=== PATIENT | female | born 1950 | race Caucasian/White ===

== ENCOUNTER 2018-04-14 11:25 | Observation (INO) | payer MEDICARE, BC ==
[2018-04-14 12:02] LABS: #Eosinphils 0.4 thou/uL (0.0-0.7); #Monocytes 0.4 thou/uL (0.11-0.59); #Neutrophils 7.2 thou/uL (1.40-6.50); %Basophils 0.1 % (0.0-1.0); %Lymphocytes 11.3 % (21.0-51.0); %Neutrophils 80.5 % (42.0-75.0); Hemoglobin 14.9 g/dL (12.0-16.0); Mean Corpuscular HGB CONC 33.1 g/dL (32.0-36.0); Mean Corpuscular Hemoglobin 32.1 pg (27.0-31.0); Mean Corpuscular Volume 96.8 fL (78.0-98.0); Mean Platelet Volume 6.9 fL (7.4-10.4); Platelet Count 185 thou/uL (130-400); Red Blood Cell (RBC) Count 4.63 mill/uL (4.20-5.40)
[2018-04-14 12:28] LABS: ALT (SGPT) 12 U/L (8-55); AST (SGOT) 23 U/L (5-34); Albumin 4.2 g/dL (3.4-4.8); Alkaline Phosphatase 105 U/L (40-150); Anion Gap 15 mmol/L (10-20); BUN (Urea Nitrogen) 17 mg/dL (9.8-20.1); Bilirubin, Total 0.6 mg/dL (0.2-1.2); CK (CPK) 67 U/L (29-168); Calc. Creatinine Clearance 0 mL/min (70-130); Calcium 9.5 mg/dL (7.8-10.44); Carbon Dioxide 20 mmol/L (23-31); Chloride 107 mmol/L (98-107); Estimated GFR-MDRD 56; Globulin 3.2 g/dL (2.4-3.5); Glucose 143 mg/dL (80-115); Lipase 28 U/L (8-78); Potassium 4.3 mmol/L (3.5-5.1); Protein, Total 7.4 g/dL (6.0-8.3); Sodium 138 mmol/L (136-145)
[2018-04-14 12:29] LABS: CKMB 1.3 ng/mL (0-6.6); Troponin I Less than 0.010 ng/mL (< 0.028)
[2018-04-14] MEDS ORDERED: Nitroglycerin 2% Ointment 1 INCH/1 GM Packet ONE (12:39)
--- NOTE | 2018-04-14 12:48 | RAD ---
SINGLE VIEW CHEST: Date: 04/14/18 COMPARISON: None. HISTORY: Chest pain. FINDINGS: Single view of the chest shows normal sized cardiomediastinal silhouette. There is a left subclavian pacemaker with its leads in the right atrium and ventricle. There is no evidence of consolidation, ma ss, or pleural effusion. Multiple surgical clips are seen in the upper abdomen. IMPRESSION: No evidence of acute cardiopulmonary disease. POS: [facility]
[2018-04-14] MEDS ORDERED: Ondansetron HCl/PF 4 MG/2 ML Vial IVP PRN (15:02)
[2018-04-14] MEDS ORDERED: Acetaminophen 325 MG TAB PO PRN (15:02)
[2018-04-14] MEDS ORDERED: Loperamide HCl 2 MG CAP PO PRN (15:02)
[2018-04-14] MEDS ORDERED: Milk Of Magnesia 30 ML UDCUP PO PRN (15:02)
[2018-04-14] MEDS ORDERED: Chloraseptic Spray 180 ml Bottle PO PRN (15:02)
[2018-04-14] MEDS ORDERED: Nitroglycerin 0.4 MG TAB (25 Tab Bottle) SL PRN (15:02)
[2018-04-14] MEDS ORDERED: Mag-Al 1200 mg/1200 mg/30 ML UDCUP PO PRN (15:02)
[2018-04-14] MEDS ORDERED: Zolpidem Tartrate 5 MG TAB PO PRN (15:02)
[2018-04-14] MEDS ORDERED: Diabetic Tussin 200 MG/10 ML UDCUP PO PRN (15:02)
[2018-04-14] MEDS ORDERED: hydrALAZINE 20 MG/ML VIAL SLOW IVP PRN (15:02)
[2018-04-14] MEDS ORDERED: HYDROcodone/Acetaminophen 5/325 mg Tablet PO PRN ×2 (15:02→15:36)
[2018-04-14] MEDS ORDERED: Sodium Chloride 0.65% Nasal 44 ML BOT EA NARE PRN (15:02)
[2018-04-14] MEDS ORDERED: Artificial Tears 18 DROP/0.9 ML EA EYE PRN (15:02)
[2018-04-14] MEDS ORDERED: Ondansetron ODT 4 MG TAB PO PRN (15:02)
[2018-04-14] MEDS ORDERED: Loratadine 10 MG TAB PO PRN (15:02)
[2018-04-14] MEDS ORDERED: Eucerin (Mineral Oil/Petrolatum,White) 30 gm Jar TOP PRN (15:02)
[2018-04-14] MEDS ORDERED: Senokot 8.6 MG TAB PO PRN (15:02)
--- NOTE | 2018-04-14 15:45 | HP ---
PRIMARY CARE PHYSICIAN: Dr. Adonis Soares. PRIMARY LOOP MACHINE OPERATOR: Dr. Linda. REASON FOR ADMISSION: Chest pain. HISTORY OF PRESENT ILLNESS: A 68-year-old female who has underlying history of nonischemic cardiomyopathy with AICD in place who presented to emergency room with complaint of chest pain. Patient reports that chest pain started around 10 :00 at home, it was substernal, radiating to back, associated with nausea, diaphoresis, and shortness of breath. She denies any vomiting. She was feeling dizziness. She denies any syncopal episode. She denies any relation of chest discomfort with food, respiration or activity. Before all this started , patient was feeling itching sensation in both hands and feet and subsequently she went to shower where all the symptoms started. The patient requested her to call paramedics. When paramedics came to her house, at that time, the pain was already started subsiding, but she was given nitroglycerin and she was given second nitroglycerin. After that she was almost completely pain free. Patient reports that about 2 weeks ago, she had similar type of discomfort at home, at that time she called her AICD pacemaker company and they looked at her rhythm and everything was fine. She did not go to doctor's office at that time. Patient denies any lower extremity edema or calf tenderness. She denies any fever or chills. She denies any orthopnea, PND or leg swelling. Today, her pain completely subsided within 45 minutes. In the Emergency Room, patient was not hypertensive. She was almost completely asymptomatic. REVIEW OF SYSTEMS: The following complete review of systems was negative, unless otherwise mentioned in the HPI or below: Constitutional: Weight loss or gain, ability to conduct usual activities. Skin: Rash, itching. Eyes: Double vision, pain. ENT/Mouth: Nose bleeding, neck stiffness, pain, tenderness. Cardiovascular: Palpitations, dyspnea on exertion, orthopnea. Respiratory: Shortness of breath, wheezing, cough, hemoptysis, fever or night sweats. Gastrointestinal: Poor appetite, abdominal pain, heartburn, nausea, vomiting, constipation, or diarrhea. Genitourinary: Urgency, frequency, dysuria, nocturia. Musculoskeletal: Pain, swelling. Neurologic/Psychiatric: Anxiety, depression. Allergy/Immunologic: Skin rash, bleeding tendency. Please see my HPI for pertinent positive and negative. All other review of systems reviewed and negative except as mentioned in the HPI. ALLERGIES: CODEINE, SULFATE and NUBAIN. CURRENT HOME MEDICATIONS: Coreg 6.25 mg twice daily, Zocor 40 mg p.o. at bedtime, Cymbalta 30 mg p.o. at bedtime, celecoxib 200 mg p.o. twice daily, fluoxetine 20 mg p.o. daily, Voltaren topical application as needed, losartan 100 mg p.o. daily, Aldactone 25 mg p.o. daily, gabapentin 300 mg p.o. twice daily, morphine 15 mg ER twice daily, aspirin 81 mg p.o. daily, L-carnitine 500 mg p.o. daily, coenzyme Q10 100 mg p.o. daily. PAST MEDICAL HISTORY: Nonischemic cardiomyopathy with AICD. As per patient, initial EF was on diagnosis at 19%-20%. Subsequently, with AICD and with pacemaker, her EF improved to more than 40% based on last echocardiography which was done several years ago, degenerative back disease, hypertension, dyslipidemia. PAST SURGICAL HISTORY: AICD/pacemaker placement, partial nephrectomy, mastectomy of the right breast, tonsillectomy. PAST PSYCHIATRIC HISTORY: Anxiety and depression. SOCIAL HISTORY: Patient is . Her is present at bedside. No history of tobacco, alcohol or illicit drug abuse. EMERGENCY ROOM COURSE: Patient is given nitropatch. FAMILY HISTORY: No strong family history of CAD, CVA or cancer. PHYSICAL EXAMINATION: VITAL SIGNS: On arrival, blood pressure 140/85, pulse is 78, respiratory rate 18, temperature 98.2, saturation 96% on room air, weight 83.4 kilograms. GENERAL: The patient is currently alert, awake, no obvious acute distress, asymptomatic. HEENT: Normocephalic, atraumatic. Eyes: Pupils round, reactive to light. Extraocular muscle intact. ENT: Oropharynx within normal limits. Moist mucous membranes. No oral lesion , no pharyngeal erythema, no exudate. NECK: Supple, no JVD, no thyromegaly, no carotid bruit, no jugular venous distention. LUNGS: Clear to auscultation without any rhonchi or rales. CARDIAC: S1, S2 regular. No murmur, no gallop, no rub. ABDOMEN: Soft, bowel sounds present, nontender, nondistended. No organomegaly , no mass, no suprapubic tenderness. BACK: Unremarkable, no CVA tenderness. EXTREMITIES: Upper extremity passives movement of all joints are normal. Lower extremities: No edema. Good distal pulsation, no calf tenderness. SKIN: No skin rash. HEMATOLOGICAL SYSTEM: No lymphadenopathy. PSYCHIATRIC: Normal affect. NEUROLOGIC: The patient is alert, oriented x3. Cranial nerves II-XII intact. Motor and sensation within normal limits. No focal neurological deficit noted. IMAGING DATA AND SIGNIFICANT LABORATORY DATA: 1. EKG showing normal sinus rhythm within normal limits. 2. Chest x-ray based on my review, no acute cardiopulmonary process. 3. Cardiac enzymes: CK-MB 1.3, troponin I less than 0.010. 4. Lipase 28. 5. CK total 67. 6. BMP: Sodium 138, potassium 4.3, chloride 107, carbon dioxide 20, anion gap 15, BUN 17, creatinine 0.99, glucose 143, calcium 9.5. 7. LFT: Protein 7.4, albumin 4.2, AST 23, ALT 12, alkaline phosphatase 105. 8. CBC: WBC 9.0, hemoglobin 14.9, platelet 185. ASSESSMENT AND PLAN/IMPRESSION: 1. Acute chest pain. Patient's chest pain description is atypical, does not suspect any aortic dissection or aortic plaque rupture given the patient is currently completely asymptomatic and she was not hypertensive on admission and her blood pressure is normal in both upper extremities, patient does not have any risk factor for thromboembolic disorder and the patient is currently on room air, saturating normal, without any tachycardia. So thromboembolic disorder is also extremely unlikely, does not suspect any gastroesophageal reflux disease, but needs to be ruled out. Patient also has several risk factors for coronary artery disease and that is why we need to rule out coronary artery disease. At this point, our main differential is angina that has improved with nitroglycerin. At this point, cardiogram is normal. Cardiac enzymes are negative, but the patient will need serial cardiac enzymes to rule out acute coronary syndrome. We will check lipid profile for risk stratification. I spoke with the patient that if cardiac enzymes continue to be negative, then she agreed to go for pharmacological stress test tomorrow for diagnostic reason. If cardiac enzymes catheterization abnormal, then patient also agreed to consult Cardiology here in our hospital to her facing baster jumpbasting at [facility]. Depending upon stress test result versus cardiac enzymes result, we will decide next level of care. We will monitor on telemetry floor. 2. Nonischemic cardiomyopathy with chronic systolic heart failure. The patient is currently euvolemic. We will continue Coreg 6.25 mg p.o. b.i.d., Aldactone 25 mg p.o. daily, losartan 100 mg p.o. daily. 3. Dyslipidemia. Check lipid profile tomorrow and continue Zocor 40 mg p.o. at bedtime. 4. Anxiety and depression. Continue Cymbalta 30 mg p.o. daily, Prozac 20 mg p.o. daily. 5. Chronic low back pain. Continue gabapentin 300 mg twice daily, morphine sulfate 15 mg twice daily. 6. Deep venous thrombosis prophylaxis not needed because we are expecting discharge in 24 hours. 7. Gastrointestinal prophylaxis, Pepcid 20 mg p.o. b.i.d. 8. Code status: The patient is FULL CODE. Patient's is surrogate decision maker. Disposition plan based on stress test result, likely within 24 hours. Plan of care is discussed with the patient and family member at bedside. RODRIGO
[2018-04-14 15:50] LABS: Troponin I 0.043 ng/mL (< 0.028)
[2018-04-14 17:10] VITALS: BMI 32.5
[2018-04-14] MEDS: Carvedilol 6.25 MG TAB PO SCH (17:55)
[2018-04-14 18:40] LABS: Troponin I Less than 0.010 ng/mL (< 0.028)
[2018-04-14] MEDS ORDERED: Atorvastatin Calcium 20 MG TAB PO SCH (21:00)
[2018-04-14] MEDS: Gabapentin 300 MG CAP PO SCH (21:34)
[2018-04-14] MEDS: Famotidine 20 MG TAB PO SCH (21:34)
[2018-04-14] MEDS: Morphine ER 15 MG TAB PO SCH (21:34)
[2018-04-14] MEDS: Nitroglycerin 2% Ointment 1 INCH/1 GM Packet TOP SCH (21:35)
[2018-04-15 06:15] LABS: Cardiac Risk 3.3 (Less than 4.5)
[2018-04-15] MEDS: Nitroglycerin 2% Ointment 1 INCH/1 GM Packet TOP SCH ×2 (07:57→14:32)
[2018-04-15] MEDS ORDERED: Spironolactone 25 MG TAB PO SCH (08:00)
[2018-04-15] MEDS ORDERED: ADENOSINE 60 MG/20 ML VIAL ONE (08:18)
[2018-04-15] MEDS: Gabapentin 300 MG CAP PO SCH (08:39)
[2018-04-15] MEDS: Famotidine 20 MG TAB PO SCH (08:39)
[2018-04-15] MEDS: Morphine ER 15 MG TAB PO SCH (08:45)
[2018-04-15] MEDS: Carvedilol 6.25 MG TAB PO SCH (08:45)
[2018-04-15] MEDS ORDERED: Losartan 25 MG TAB PO SCH (09:00)
[2018-04-15] MEDS ORDERED: Ubidecarenone 50 MG CAP PO SCH (09:00)
[2018-04-15] MEDS ORDERED: DULoxetine 30 MG CAP PO SCH (09:00)
[2018-04-15] MEDS ORDERED: Aspirin 325 MG TAB PO SCH (09:00)
[2018-04-15] MEDS ORDERED: FLUoxetine HCl 20 MG CAP PO SCH (09:00)
--- NOTE | 2018-04-15 11:23 | PDOC.PN ---
- Subjective Encounter Start Date: 04/15/18 Encounter Start Time: 07:10 -: old records requested/rev Patient seen and examined. No new complaints. No overnight events - Objective Resuscitation Status: Resuscitation Status FULL:Full Resuscitation MAR Reviewed: Yes Vital Signs & Weight: Vital Signs (12 hours) Temp Pulse Resp BP BP Pulse Ox 04/15/18 07:50 98.6 F 80 18 118/59 L 97 04/15/18 05:03 80 18 113/56 L 100 04/14/18 23:26 98.4 F 70 21 H 128/60 98 Weight Weight 184 lb I&O: 04/14/18 04/15/18 04/16/18 06:59 06:59 06:59 Intake Total 1000 Balance 1000 Result Diagrams: 04/14/18 11:43 04/14/18 11:51 EKG Reviewed by me: Yes Phys Exam - Physical Examination Constitutional: NAD HEENT: PERRLA, moist MMs, sclera anicteric Neck: no JVD, supple Respiratory: no wheezing, no rales, no rhonchi Cardiovascular: RRR, no significant murmur, no rub Gastrointestinal: soft, non-tender, no distention, positive bowel sounds Musculoskeletal: no edema, pulses present Neurological: non-focal, normal sensation, moves all 4 limbs Lymphatic: no nodes Psychiatric: normal affect, A&O x 3 Skin: no rash, normal turgor Dx/Plan (1) Chest pain Code(s): R07.9 - CHEST PAIN, UNSPECIFIED Status: Acute (2) Anxiety and depression Code(s): F41.9 - ANXIETY DISORDER, UNSPECIFIED; F32.9 - MAJOR DEPRESSIVE DISORDER, SINGLE EPISODE, UNSPECIFIED Status: Chronic (3) Chronic systolic heart failure, ACC/AHA stage C Code(s): I50.22 - CHRONIC SYSTOLIC (CONGESTIVE) HEART FAILURE Status: Chronic (4) Dyslipidemia Code(s): E78.5 - HYPERLIPIDEMIA, UNSPECIFIED Status: Chronic (5) Hypertension Code(s): I10 - ESSENTIAL (PRIMARY) HYPERTENSION Status: Chronic (6) Obesity (BMI 30.0-34.9) Code(s): E66.9 - OBESITY, UNSPECIFIED Status: Chronic - Plan cont current plan of care * medication reviewed as below * symptomatic treatment * today stress test * if normal will discharge to home * if abnormal, then pt to decide if she is interested in cardiac cath here or 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 Review of Systems - Review of Systems Eyes: negative: Pain, Vision Change, Conjunctivae Inflammation, Eyelid Inflammation, Redness, Other ENT: negative: Ear Pain, Ear Discharge, Nose Pain, Nose Discharge, Nose Congestion, Mouth Pain, Mouth Swelling, Throat Pain, Throat Swelling, Other Respiratory: negative: Cough, Dry, Shortness of Breath, Hemoptysis, SOB with Excertion, Pleuritic Pain, Sputum, Wheezing Cardiovascular: negative: chest pain, palpitations, orthopnea, paroxysmal nocturnal dyspnea, edema, light headedness, other Gastrointestinal: negative: Nausea, Vomiting, Abdominal Pain, Diarrhea, Constipation, Melena, Hematochezia, Other Genitourinary: negative: Dysuria, Frequency, Incontinence, Hematuria, Retention , Other Musculoskeletal: negative: Neck Pain, Shoulder Pain, Arm Pain, Back Pain, Hand Pain, Leg Pain, Foot Pain, Other - Medications/Allergies Allergies/Adverse Reactions: Allergies Allergy/AdvReac Type Severity Reaction Status Date / Time codeine Allergy Verified 04/14/18 15:26 [id number] [From Nubain] Allergy Verified 04/14/18 15:26 Medications: Current Medications Acetaminophen (Tylenol) 650 mg PO Q4H PRN PRN Reason: Headache/Fever or Pain Hydrocodone Bitart/Acetaminophen ([place] 5/325) 1 tab PO Q4H PRN PRN Reason: Moderate Pain (4-6) Al Hydroxide/Mg Hydroxide (Maalox) 30 ml PO Q6H PRN PRN Reason: Heartburn or Indigestion Artificial Tears (Tears Naturale) 0 drop EA EYE PRN PRN PRN Reason: Dry Eyes Aspirin (Aspirin) 325 mg PO DAILY [facility] Last Admin: 04/15/18 08:38 Dose: 325 mg Atorvastatin Calcium (Lipitor) 20 mg PO HS [facility] Last Admin: 04/14/18 21:34 Dose: 20 mg Carvedilol (Coreg) 6.25 mg PO BID-WM [facility] Last Admin: 04/14/18 17:55 Dose: 6.25 mg Coenzyme Q10 (Coenzyme Q10) 100 mg PO DAILY [facility] Last Admin: 04/15/18 08:41 Dose: 100 mg Duloxetine HCl (Cymbalta) 30 mg PO DAILY [facility] Last Admin: 04/15/18 08:38 Dose: 30 mg Famotidine (Pepcid) 20 mg PO BID [facility] Last Admin: 04/15/18 08:39 Dose: 20 mg Fluoxetine HCl (Prozac) 20 mg PO DAILY [facility] Last Admin: 04/15/18 08:39 Dose: 20 mg Gabapentin (Neurontin) 300 mg PO BID [facility] Last Admin: 04/15/18 08:39 Dose: 300 mg Guaifenesin (Robitussin Sf) 200 mg PO Q4H PRN PRN Reason: Cough Hydralazine HCl (Apresoline) 10 mg SLOW IVP Q4H PRN PRN Reason: Systolic BP > 180 Loperamide HCl (Imodium) 2 mg PO PRN PRN PRN Reason: Diarrhea/Loose Stools Loratadine (Claritin) 10 mg PO DAILYPRN PRN PRN Reason: Sinus Symptoms Losartan Potassium (Cozaar) 100 mg PO DAILY [facility] Last Admin: 04/15/18 08:39 Dose: 100 mg Magnesium Hydroxide (Milk Of Magnesium) 30 ml PO DAILYPRN PRN PRN Reason: Constipation Mineral Oil/White Petrolatum (Eucerin Cream) 0 gm TOP BIDPRN PRN PRN Reason: Dry Skin Morphine Sulfate (Ms Contin) 15 mg PO Q12HR [facility] Last Admin: 04/15/18 08:45 Dose: 15 mg Nitroglycerin (Nitro-Bid 2% Ointment) 0.5 inch TOP Q8HR [facility] Last Admin: 04/15/18 07:57 Dose: Not Given Nitroglycerin (Nitrostat) 0.4 mg SL Q5MIN PRN PRN Reason: Chest Pain Ondansetron HCl (Zofran Odt) 4 mg PO Q6H PRN PRN Reason: Nausea/Vomiting Ondansetron HCl (Zofran) 4 mg IVP Q6H PRN PRN Reason: Nausea/Vomiting Phenol (Chloraseptic Arco 180 Ml Bot) 0 ml PO PRN PRN PRN Reason: Sore Throat Senna (Senokot) 2 tab PO HSPRN PRN PRN Reason: Constipation Sodium Chloride (Maria Antonia Nasal Arco 0.65%) 0 ml EA NARE QIDPRN PRN PRN Reason: Nasal Congestion Spironolactone (Aldactone) 25 mg PO QAM-WM [facility] Last Admin: 04/15/18 08:38 Dose: 25 mg Zolpidem Tartrate (Ambien) 5 mg PO HSPRN PRN PRN Reason: Insomnia
--- NOTE | 2018-04-15 12:47 | DIS ---
DATE OF ADMISSION: 04/14/2018 DATE OF DISCHARGE: 04/15/2018 PRIMARY CARE PHYSICIAN: Adonis Soares M.D. DISCHARGE DISPOSITION: Home. PRIMARY DISCHARGE DIAGNOSIS: Chest pain, ruled out acute coronary syndrome. SECONDARY DISCHARGE DIAGNOSES: Obesity with BMI 32; hypertension; dyslipidemia ; chronic systolic heart failure, stage C; anxiety and depression. PRIMARY PROCEDURE/OPERATION: None. RADIOLOGICAL INVESTIGATION: Chest x-ray normal. Stress test result is pending. SIGNIFICANT LABORATORY DATA: WBC 9.0, hemoglobin 14.9, platelets 185. Sodium 138, potassium 4.3, BUN 17, creatinine 0.99. LFT normal. Cardiac enzymes negative. Only one troponin was indeterminant and LDL 90, lipase 28. DISCHARGE MEDICATIONS: Aspirin 81 mg p.o. daily, Coreg 6.25 mg p.o. b.i.d., celecoxib 200 mg p.o. b.i.d. p.r.n., vitamin D3 2000 units p.o. daily, Voltaren topical application as directed, Colace 50 mg p.o. b.i.d., Cymbalta 30 mg p.o. at bedtime, Prozac 20 mg p.o. daily, gabapentin 300 mg p.o. b.i.d., L-carnitine 500 mg p.o. b.i.d., losartan 100 mg p.o. daily, morphine ER 15 mg p.o. b.i.d., Zocor 40 mg p.o. at bedtime, Aldactone 25 mg p.o. daily, coenzyme Q10 100 mg p.o. daily. CONTRAINDICATIONS: None. CODE STATUS: FULL CODE. INPATIENT CONSULTANTS: None. ALLERGIES: CODEINE and NALBUPHINE. DISCHARGE PLAN: Post hospital, the patient will follow up with primary care physician as well as primary access developer. HOSPITAL COURSE: This is a 68-year-old female, who was admitted by me for chest pain. Please see my HPI for further detail. Her chest pain description was atypical for angina. We kept her in hospital for observation. We did serial cardiac enzyme, one troponin was indeterminant range, but rest of the troponins were negative. Her other routine blood test was normal. At [place], a lipid profile was checked, which was also normal. She remained hemodynamically stable while in hospital. We pursued a pharmacological stress test and official report is pending. If stress test is negative, then patient will be discharged home. If positive, then patient will decide about whether she is interested in cardiac catheterization here or at [facility] with our own access developer. The patient is seen and examined at bedside today. Please see my progress note from today for further details. stress test is negative for reversible ischemia, but shows low EF as per her systolic heart failure history, pt is advised to get repeat echo when she visit her primary access developer. RODRIGO
[2018-04-15 14:12] VITALS: BP 141/67; TEMP 98.5
--- NOTE | 2018-04-15 15:08 | NM ---
MYOCARDIAL PERFUSION AND QUANTITATED GATED SPECT STUDY: HISTORY: Chest pain. TECHNIQUE: Dose: 30 mCi of technetium-99m Cardiolite for the stress and 9.2 mCi for the resting portion of the exam. The patient was stressed using 46.5 mg of Adenosine given IV. FINDINGS: Images obtained and demonstrate no significant evidence of reversible defect seen on resting or stres s images. The left ventricle is hypokinetic with ejection fraction measuring 36%. IMPRESSION: 1. Hypokinetic left ventricle with ejection fraction measuring 36%. 2. No definite evidence of areas of myocardial ischemia seen. POS: [facility]
[2018-04-16] MEDS ORDERED: Famotidine 20 MG TAB PO SCH (09:00)
== END 2018-04-15 15:45 | disposition home or self-care (01) ==
LOC: ERS 11:25 → 2SW 15:09
PROVIDERS: ADMIT Internal Medicine; ATTEND Internal Medicine
DX: R07.89 Other chest pain (principal); I42.8 Other cardiomyopathies; E78.5 Hyperlipidemia, unspecified; I11.0 Hypertensive heart disease with heart failure; I50.22 Chronic systolic (congestive) heart failure; G89.29 Other chronic pain; M54.5 Low back pain; E66.9 Obesity, unspecified; Z68.32 Body mass index [BMI] 32.0-32.9, adult; Z79.82 Long term (current) use of aspirin; Z79.891 Long term (current) use of opiate analgesic; Z79.899 Other long term (current) drug therapy; Z88.2 Allergy status to sulfonamides; Z88.5 Allergy status to narcotic agent; Z95.810 Presence of automatic (implantable) cardiac defibrillator
CPT/HCPCS: 71045; 78452; 80053; 80061; 82550; 82553; 83690; 84484 ×2; 85025; 93005; 93017; 99285; A9500; G0378 ×2; 36415; J0153

== ENCOUNTER 2018-06-22 08:22 | Outpatient (CLI) | payer MEDICARE, BC ==
--- NOTE | 2018-06-22 09:53 | CT ---
CT BRAIN WITHOUT AND WITH CONTRAST: Comparison: None. History: History of breast cancer with multiple syncopal episodes since December of this year. Technique: Multiple contiguous axial images were obtained in a CT of the brain without and with IV co ntrast. FINDINGS: The brain is normal in morphology and attenuation without focal lesions or confluent areas of infarct ion. No abnormal enhancement is seen. There is no evidence of hydrocephalus, intracranial hemorrhage, or extraaxial fluid collections. The calvarium and overlying soft tissues are unremarkable. The visualized paranasal sinuses and masto id air cells are well aerated. IMPRESSION: No evidence of acute intracranial abnormality. POS: [facility]
[2018-06-22] MEDS ORDERED: Iopamidol 370 76% 100 ML VIAL ONE (10:35)
== END 2018-06-22 08:23 | disposition home or self-care (01) ==
LOC: CT 08:22
PROVIDERS: ATTEND Psychiatry & Neurology Neurology
DX: R55 Syncope and collapse (principal)
CPT/HCPCS: 70470; 82565

== ENCOUNTER 2019-06-27 10:04 | Outpatient (CLI) | payer MEDICARE, BC ==
--- NOTE | 2019-06-27 11:12 | BD ---
BONE DENSITOMETRY: HISTORY: Postmenopausal screening. FINDINGS: Lumbar Spine: BMD (g/cm2) L1 1.068 T-Score: 0.7 L2 1.211 T-Score: 1.7 L3 1.362 T-Score: 2.5 L4 1.442 T-Score: 3.5 L1-L4 1.279 T-Score: 2.1 Total lumbar spine density 05/21/2014: 1.270. Femoral Neck: 0.688 T-Score: -1.5 Total Femur: 0.939 T-Score: 0.0 Total femur density 05/21/2014: 0.935 Impression: 1. The bone mineral density in the lumbar spine is within normal range. 2. Bone mineral density of the femoral neck indicates osteopenia. TEN-YEAR FRACTURE RISK: Major osteoporotic fracture: 15%. Hip fracture: 2.8%. POS: [facility]
== END 2019-06-27 10:05 | disposition home or self-care (01) ==
LOC: BICMAMMO 10:04
PROVIDERS: ATTEND Internal Medicine Rheumatology
DX: M81.0 Age-related osteoporosis without current pathological fracture (principal); M85.859 Other specified disorders of bone density and structure, unspecified thigh
CPT/HCPCS: 77080

== ENCOUNTER 2019-09-20 12:31 | Outpatient (CLI) | payer MEDICARE, BC ==
--- NOTE | 2019-09-20 13:10 | RAD ---
EXAM: 3 views of the right foot HISTORY: Foot pain COMPARISON: None FINDINGS: 3 views of the right foot shows no evidence of acute fracture or dislocation. No soft tissu e swelling is seen. Joint space narrowing and osteophyte formation is seen in the great toe at the tarsometatarsal joint. IMPRESSION: Moderate degenerative change of the great toe without acute osseous abnormality.
== END 2019-09-20 12:32 | disposition home or self-care (01) ==
LOC: BICRAD 12:31
PROVIDERS: ATTEND Internal Medicine Rheumatology
DX: M19.071 Primary osteoarthritis, right ankle and foot (principal)

== ENCOUNTER 2020-01-10 11:12 | Outpatient (CLI) | payer MEDICARE, BC ==
--- NOTE | 2020-01-10 12:53 | MMO ---
Bilateral MAMMO Bilat Screen DDI+DIONI. CLINICAL HISTORY: Patient is 69 years old and is seen for screening. The patient has the following family history of breast cancer: maternal aunt, at age 62. The patient has a history of malignant (generic) in the right breast in 1997. The patient has a history of right Lumpectomy in 1997. VIEWS: The views performed were: bilateral craniocaudal with tomosynthesis; bilateral mediolateral oblique with tomosynthesis; left mediolateral oblique; and right exaggerated craniocaudal. FILMS COMPARED: The present examination has been compared to prior imaging studies performed at [facility] on 11/04/2011, 12/26/2012, 05/21/2014 and 05/09/2017. This study has been interpreted with the assistance of computer-aided detection. MAMMOGRAM FINDINGS: There are scattered fibroglandular densities. Finding 1: There are stable post operative changes seen in the right breast. Finding 2: There are stable benign appearing calcifications seen in both breasts. There are no suspicious masses, suspicious calcifications, or new areas of architectural distortion. IMPRESSION: THERE IS NO MAMMOGRAPHIC EVIDENCE OF MALIGNANCY. A ROUTINE FOLLOW-UP MAMMOGRAM IN 1 YEAR IS RECOMMENDED. THE RESULTS OF THIS EXAM WERE SENT TO THE PATIENT. ACR BI-RADS Category 2 - Benign finding MAMMOGRAPHY NOTE: 1. A negative mammogram report should not delay a biopsy if a dominant of clinically suspicious mass is present. 2. Approximately 10% to 15% of breast cancers are not detected by mammography. 3. Adenosis and dense breasts may obscure an underlying neoplasm. Reported by: EVELIN MCKNIGHT MD Electonically Signed: [id number]
== END 2020-01-10 11:13 | disposition home or self-care (01) ==
LOC: BICMAMMO 11:12
PROVIDERS: ATTEND Family Medicine
DX: Z12.31 Encounter for screening mammogram for malignant neoplasm of breast (principal); Z85.3 Personal history of malignant neoplasm of breast; Z80.3 Family history of malignant neoplasm of breast; Z98.890 Other specified postprocedural states
CPT/HCPCS: 77063; 77067

== ENCOUNTER 2020-01-15 15:03 | Outpatient (CLI) | payer MEDICARE, BC ==
--- NOTE | 2020-01-15 16:03 | RAD ---
LUMBAR SPINE FOUR VIEW: 01/15/20 HISTORY: Lumbar radiculopathy. COMPARISON: None. FINDINGS: There is high grade dextroscoliosis of the lumbar spine. Severe right L4-5 and L5-S1 facet arthrosis and moderate left L5-S1 facet arthrosis. Moderate SI joint degenerative disease bilaterally. Surgical clips on the right retroperitoneum. No acute displaced fracture is appreciated. No abnormal translation with flexion or extension. IMPRESSION: High grade dextroscoliosis with subsequent L2-S1 severe disc degeneration and lower lumbar spine face t arthrosis. POS: [facility]
--- NOTE | 2020-01-15 17:20 | CT ---
CT LUMBAR SPINE WITHOUT CONTRAST: 01/15/20 HISTORY: Pain. radiculopathy. COMPARISON: Radiograph same day. FINDINGS/IMPRESSION: The visualized lung bases are clear. The aortic contour is nonaneurysmal. Surgical clips along the right retroperitoneum. There is no acute fracture or the lumbar spine. Mild S-shape scoliosis. The levels are as follows: L1-2: Moderate degenerative disc space height loss. Circumferential disc osteophyte complex. Mild eff acement of the ventral CSF space of the spinal canal measuring approximately 8 mm. Mild bilateral yenifer ral foraminal narrowing. L2-3: Advanced degenerative disc space height loss. Circumferential disc osteophyte complex. Moderate right and moderate to severe left neural foraminal narrowing. Moderate left and right hypertrophic f acet arthrosis. 1 to 2 mm anterolisthesis. Spinal canal measures approximately 8 mm. L3-4: Advanced degenerative disc space height loss. There is leftward subluxation of L4 under L3 appr oximately 5 to 6 mm. A large disc osteophyte complex causes severe bilateral neural foraminal narrowi ng. There is moderate to severe left and moderate right hypertrophic facet arthrosis. The spinal harry l is narrowed to approximately 6 mm. L4-5: Advanced degenerative disc space height loss. Large disc osteophyte complex. There is moderate to severe left and severe right neural foraminal narrowing. Moderate to severe hypertrophic disc arth rosis on the right and moderate on the left. The spinal canal measures approximately 8 mm. L5-S1: Advanced degenerative disc space height loss. Large disc osteophyte complex. Greatest in the s ubforaminal zones and lateral recesses. Severe bilateral neural foraminal narrowing. Moderate left an d moderate to severe right hypertrophic facet arthrosis. No significant spinal canal narrowing. Likely an interosseous benign chondroid lesion within the posterior elements of the sacrum of S3 and S4 although this is incompletely evaluated and does appear to narrow the exiting left S3 neural jazmin en. This is stable dating back to 2011 and is a benign finding. POS: [facility]
== END 2020-01-15 15:04 | disposition home or self-care (01) ==
LOC: BICCT 15:03
PROVIDERS: ATTEND Anesthesiology Pain Medicine
DX: M47.26 Other spondylosis with radiculopathy, lumbar region (principal); M48.062 Spinal stenosis, lumbar region with neurogenic claudication; M16.10 Unilateral primary osteoarthritis, unspecified hip; M46.1 Sacroiliitis, not elsewhere classified; M41.26 Other idiopathic scoliosis, lumbar region; G89.4 Chronic pain syndrome; M51.17 Intervertebral disc disorders with radiculopathy, lumbosacral region
CPT/HCPCS: 72110; 72131

== ENCOUNTER 2021-01-11 11:25 | Outpatient (CLI) | payer MEDICARE, BC | END 2021-01-11 11:26 | disposition home or self-care (01) | LOC: BICMAMMO 11:25 | PROVIDERS: ATTEND Family Medicine | DX: Z12.31 Encounter for screening mammogram for malignant neoplasm of breast (principal); Z80.3 Family history of malignant neoplasm of breast; Z85.3 Personal history of malignant neoplasm of breast; Z98.890 Other specified postprocedural states | CPT/HCPCS: 77063; 77067 ==

== ENCOUNTER 2021-09-10 11:40 | Inpatient (IN) | payer MEDICARE, BC ==
[2021-09-10 12:47] LABS: #Eosinphils 0.1 thou/uL (0.0-0.7); #Lymphocytes 0.9 thou/uL (1.20-3.40); #Monocytes 1.3 thou/uL (0.11-0.59); #Neutrophils 12.5 thou/uL (1.40-6.50); %Eosinophils 0.5 % (0.0-10.0); %Monocytes 9.1 % (0.0-10.0); %Neutrophils 84.4 % (42.0-75.0); Hemoglobin 12.3 g/dL (12.0-16.0); Mean Corpuscular HGB CONC 32.5 g/dL (32.0-36.0); Mean Corpuscular Hemoglobin 31.3 pg (27.0-31.0); Mean Corpuscular Volume 96.1 fL (78.0-98.0); Mean Platelet Volume 7.2 fL (7.4-10.4); Platelet Count 158 thou/uL (130-400); RBC Distribution Width 11.4 % (11.5-14.5); Red Blood Cell (RBC) Count 3.95 mill/uL (4.20-5.40); White Blood Cell (WBC) Count 14.8 thou/uL (4.8-10.8)
[2021-09-10] MEDS ORDERED: Acetaminophen 500 MG TAB ONE ×3 (12:56→19:26)
[2021-09-10 13:07] LABS: ALT (SGPT) 83 U/L (8-55); AST (SGOT) 105 U/L (5-34); Albumin 3.8 g/dL (3.4-4.8); Alkaline Phosphatase 119 U/L (40-110); Anion Gap 15 mmol/L (10-20); BUN (Urea Nitrogen) 12 mg/dL (9.8-20.1); Bilirubin, Total 1.6 mg/dL (0.2-1.2); Calc. Creatinine Clearance 0 mL/min (70-130); Calcium 9.6 mg/dL (7.8-10.44); Carbon Dioxide 25 mmol/L (23-31); Chloride 97 mmol/L (98-107); Globulin 3.5 g/dL (2.4-3.5); Glucose 122 mg/dL (83-110); Potassium 3.8 mmol/L (3.5-5.1); Protein, Total 7.3 g/dL (5.8-8.1); Sodium 133 mmol/L (136-145)
[2021-09-10 13:21] LABS: SARS-CoV-2 NAA Rapid Test Not Detected (NotDetected)
[2021-09-10 13:31] LABS: CKMB 2.6 ng/mL (0-6.6)
[2021-09-10] MEDS ORDERED: Vancomycin 1 GM/200 ML BAG ONE (14:04)
[2021-09-10] MEDS ORDERED: Cefepime 2 GM VIAL ONE (14:07)
[2021-09-10] MEDS ORDERED: diphenhydrAMINE 25 MG CAP ONE (14:08)
[2021-09-10] MEDS ORDERED: Metoclopramide HCl 10 MG/2 ML VIAL ONE (14:08)
[2021-09-10] MEDS ORDERED: diphenhydrAMINE 50 MG/ML VIAL ONE (14:17)
[2021-09-10 15:11] LABS: Bacteria/HPF 2+ HPF (None Seen); Bilirubin Negative (Negative); Blood, Urine 1+ (Negative); Glucose, Urine (Dipstick) Normal (Negative); Ketone, Urine 10 mg/dL (Negative); Leukocyte 500 Leu/uL (Negative); Nitrite 2+ (Negative); Protein, Urine (Dipstick) 70 mg/dL (Neg-Trace); Specific Gravity, Urine 1.017 (1.002-1.036); Squamous Epithelial 0-3 HPF (0-3); WBC/HPF Greater than 50 HPF (0-3)
[2021-09-10 15:13] LABS: Clarity Cloudy (Clear)
[2021-09-10 16:11] LABS: Troponin I 0.089 ng/mL (< 0.028)
[2021-09-10] MEDS ORDERED: Senokot S 8.6-50 MG TAB PO PRN (18:19)
[2021-09-10 19:07] LABS: Magnesium 1.7 mg/dL (1.6-2.6)
[2021-09-10 19:10] LABS: Troponin I 0.074 ng/mL (< 0.028)
[2021-09-10 20:38] VITALS: BMI 30.8
[2021-09-10] MEDS: Famotidine 20 MG TAB PO SCH (21:12)
[2021-09-10] MEDS: Enoxaparin Sodium 40 MG/0.4 ML SYRINGE SC SCH (21:12)
[2021-09-11 05:05] LABS: Mean Corpuscular HGB CONC 33.1 g/dL (32.0-36.0); Mean Corpuscular Hemoglobin 31.9 pg (27.0-31.0); Mean Corpuscular Volume 96.3 fL (78.0-98.0); Mean Platelet Volume 7.6 fL (7.4-10.4); Platelet Count 149 thou/uL (130-400); RBC Distribution Width 11.4 % (11.5-14.5); Red Blood Cell (RBC) Count 3.76 mill/uL (4.20-5.40); White Blood Cell (WBC) Count 16.3 thou/uL (4.8-10.8)
[2021-09-11 05:22] LABS: Anion Gap 21 mmol/L (10-20); BUN (Urea Nitrogen) 12 mg/dL (9.8-20.1); Calc. Creatinine Clearance 81 mL/min (70-130); Calcium 9.2 mg/dL (7.8-10.44); Carbon Dioxide 17 mmol/L (23-31); Chloride 100 mmol/L (98-107); Glucose 124 mg/dL (83-110); Potassium 3.3 mmol/L (3.5-5.1); Sodium 135 mmol/L (136-145)
[2021-09-11 05:37] LABS: Band 13 % (5-11); Lymphocytes 2 % (21-51); MDiff Complete? YES; Metamyelocyte 1 % (0-0); Monocytes 6 % (0-10); Neutrophil 78 % (42-75)
[2021-09-11] MEDS ORDERED: cefTRIAXone\\ROCEPHIN 1 GM in Sodium Chloride 0.9% 100 ML IVPB SCH (08:00)
[2021-09-11] MEDS: Carvedilol 6.25 MG TAB PO SCH ×2 (09:20→20:34)
[2021-09-11] MEDS: Famotidine 20 MG TAB PO SCH ×2 (09:20→20:34)
[2021-09-11] MEDS: Morphine ER 15 MG TAB PO SCH ×2 (09:20→20:36)
[2021-09-11] MEDS: Gabapentin 300 MG CAP PO SCH ×2 (09:21→20:35)
[2021-09-11] MEDS: FLUoxetine HCl 20 MG CAP PO SCH (09:21)
[2021-09-11] MEDS: Acetaminophen 325 MG TAB PO PRN (11:07)
[2021-09-11] MEDS: Cefepime 1 GM in Sodium Chloride 0.9% 100 ML IVPB SCH (15:29)
[2021-09-11] MEDS: Atorvastatin Calcium 20 MG TAB PO SCH (20:33)
[2021-09-11] MEDS: Enoxaparin Sodium 40 MG/0.4 ML SYRINGE SC SCH (20:34)
[2021-09-11] MEDS: Aspirin 81 mg Enteric Coated Tablet PO SCH (20:34)
[2021-09-11] MEDS: DULoxetine 30 MG CAP PO SCH (20:34)
[2021-09-12] MEDS: Cefepime 1 GM in Sodium Chloride 0.9% 100 ML IVPB SCH ×2 (02:18→14:37)
[2021-09-12] MEDS: Gabapentin 300 MG CAP PO SCH ×2 (09:13→20:11)
[2021-09-12] MEDS: Morphine ER 15 MG TAB PO SCH ×2 (09:14→20:12)
[2021-09-12] MEDS: Carvedilol 6.25 MG TAB PO SCH ×2 (09:15→20:10)
[2021-09-12] MEDS: FLUoxetine HCl 20 MG CAP PO SCH (09:15)
[2021-09-12] MEDS: Famotidine 20 MG TAB PO SCH ×2 (09:15→20:09)
[2021-09-12] MEDS ORDERED: Non-Formulary Item 1 EACH (Levocarnitine Tartrate [L-Carnitine] 500 MG Capsule) PO SCH (17:00)
[2021-09-12] MEDS: Docusate 100 MG CAP PO SCH (20:10)
[2021-09-12] MEDS: DULoxetine 30 MG CAP PO SCH (20:10)
[2021-09-12] MEDS: Atorvastatin Calcium 20 MG TAB PO SCH (20:11)
[2021-09-12] MEDS: Aspirin 81 mg Enteric Coated Tablet PO SCH (20:13)
[2021-09-12] MEDS: Enoxaparin Sodium 40 MG/0.4 ML SYRINGE SC SCH (20:13)
[2021-09-13] MEDS: Cefepime 1 GM in Sodium Chloride 0.9% 100 ML IVPB SCH (01:38)
[2021-09-13 05:29] LABS: #Eosinphils 0.4 thou/uL (0.0-0.7); #Lymphocytes 1.2 thou/uL (1.20-3.40); #Monocytes 0.9 thou/uL (0.11-0.59); #Neutrophils 3.6 thou/uL (1.40-6.50); %Basophils 0.2 % (0.0-1.0); %Lymphocytes 19.2 % (21.0-51.0); %Monocytes 14.6 % (0.0-10.0); %Neutrophils 59.9 % (42.0-75.0); Hemoglobin 10.8 g/dL (12.0-16.0); Mean Corpuscular HGB CONC 32.8 g/dL (32.0-36.0); Mean Corpuscular Hemoglobin 31.9 pg (27.0-31.0); Mean Corpuscular Volume 97.4 fL (78.0-98.0); Mean Platelet Volume 7.9 fL (7.4-10.4); Platelet Count 146 thou/uL (130-400); RBC Distribution Width 11.4 % (11.5-14.5)
[2021-09-13 05:54] LABS: Anion Gap 12 mmol/L (10-20); BUN (Urea Nitrogen) 19 mg/dL (9.8-20.1); CRP (Inflammatory) 15.81 mg/dL (= or < 0.5); Calc. Creatinine Clearance 78 mL/min (70-130); Calcium 8.6 mg/dL (7.8-10.44); Carbon Dioxide 25 mmol/L (23-31); Chloride 101 mmol/L (98-107); Glucose 109 mg/dL (83-110); Potassium 3.3 mmol/L (3.5-5.1); Sodium 135 mmol/L (136-145)
[2021-09-13] MEDS: Gabapentin 300 MG CAP PO SCH ×2 (09:10→21:03)
[2021-09-13] MEDS: Morphine ER 15 MG TAB PO SCH ×2 (09:11→21:04)
[2021-09-13] MEDS: Famotidine 20 MG TAB PO SCH ×2 (09:12→21:02)
[2021-09-13] MEDS: FLUoxetine HCl 20 MG CAP PO SCH (09:12)
[2021-09-13] MEDS: Furosemide 20 MG TAB PO SCH (09:12)
[2021-09-13] MEDS: Carvedilol 6.25 MG TAB PO SCH ×2 (09:12→21:02)
[2021-09-13] MEDS: Docusate 100 MG CAP PO SCH ×2 (09:12→21:02)
[2021-09-13] MEDS: Acetaminophen 325 MG TAB PO PRN (14:22)
[2021-09-13] MEDS: Cefepime 2 GM in Sodium Chloride 0.9% 100 ML IVPB SCH (21:00)
[2021-09-13] MEDS: Enoxaparin Sodium 40 MG/0.4 ML SYRINGE SC SCH (21:01)
[2021-09-13] MEDS: Aspirin 81 mg Enteric Coated Tablet PO SCH (21:03)
[2021-09-13] MEDS: DULoxetine 30 MG CAP PO SCH (21:03)
[2021-09-13] MEDS: Sacubitril 49 MG/Valsartan 51 MG TABLET PO SCH (21:03)
[2021-09-13] MEDS: Atorvastatin Calcium 20 MG TAB PO SCH (21:03)
[2021-09-14] MEDS: Cefepime 2 GM in Sodium Chloride 0.9% 100 ML IVPB SCH (09:03)
[2021-09-14] MEDS: Gabapentin 300 MG CAP PO SCH (09:05)
[2021-09-14] MEDS: Famotidine 20 MG TAB PO SCH (09:06)
[2021-09-14] MEDS: FLUoxetine HCl 20 MG CAP PO SCH (09:06)
[2021-09-14] MEDS: Furosemide 20 MG TAB PO SCH (09:06)
[2021-09-14] MEDS: Carvedilol 6.25 MG TAB PO SCH (09:06)
[2021-09-14] MEDS: Sacubitril 49 MG/Valsartan 51 MG TABLET PO SCH (09:06)
[2021-09-14] MEDS: Docusate 100 MG CAP PO SCH (09:07)
[2021-09-14] MEDS: Morphine ER 15 MG TAB PO SCH (09:07)
[2021-09-14 13:05] VITALS: BP 115/64; TEMP 98
== END 2021-09-14 15:15 | disposition home or self-care (01) | DRG 872 ==
LOC: ERS 11:40 → ERHOLD 15:21 → 2NO 20:02 → OBSVTOIN 09-11 07:22
PROVIDERS: ADMIT Family Medicine; ATTEND Hospitalist
DX: A41.51 Sepsis due to Escherichia coli [E. coli] (principal); N30.00 Acute cystitis without hematuria; Z20.822 Contact with and (suspected) exposure to COVID-19; I50.22 Chronic systolic (congestive) heart failure; I42.8 Other cardiomyopathies; M54.9 Dorsalgia, unspecified; F41.9 Anxiety disorder, unspecified; F32.9 Major depressive disorder, single episode, unspecified; E78.00 Pure hypercholesterolemia, unspecified; K58.1 Irritable bowel syndrome with constipation; I11.0 Hypertensive heart disease with heart failure; G89.4 Chronic pain syndrome; F39 Unspecified mood [affective] disorder; M54.2 Cervicalgia; E87.6 Hypokalemia; Z88.5 Allergy status to narcotic agent; Z88.8 Allergy status to other drugs, medicaments and biological substances; Z79.899 Other long term (current) drug therapy; Z95.810 Presence of automatic (implantable) cardiac defibrillator; Z79.82 Long term (current) use of aspirin; Z90.49 Acquired absence of other specified parts of digestive tract; Z90.89 Acquired absence of other organs; Z90.11 Acquired absence of right breast and nipple; Z90.710 Acquired absence of both cervix and uterus; Z90.5 Acquired absence of kidney; Z98.890 Other specified postprocedural states; Z82.49 Family history of ischemic heart disease and other diseases of the circulatory system
CPT/HCPCS: 0240U; 36415; 70450; 71045; 74176; 80048; 80053; 81003; 81015; 82553; 83605; 83735; 83880; 84443; 84484; 85025; 86140; 87040; 87077; 87086; 87149; 87186; 93005; 93306; 96372; G0378; J0692; J0696; J1200; J1650; J2765; J3370; J3490

== ENCOUNTER 2021-12-16 12:15 | Outpatient (CLI) | payer MEDICARE, BC | END 2021-12-16 12:16 | disposition home or self-care (01) | LOC: BICULT 12:15 | PROVIDERS: ATTEND Urology | DX: C64.1 Malignant neoplasm of right kidney, except renal pelvis (principal); N28.9 Disorder of kidney and ureter, unspecified; Z98.890 Other specified postprocedural states; Z90.5 Acquired absence of kidney; Z87.440 Personal history of urinary (tract) infections | CPT/HCPCS: 71046; 76770 ==

== ENCOUNTER 2022-01-13 09:42 | Outpatient (CLI) | payer MEDICARE, BC | END 2022-01-13 09:43 | disposition home or self-care (01) | LOC: BICMAMMO 09:42 | PROVIDERS: ATTEND Internal Medicine Rheumatology | DX: Z12.31 Encounter for screening mammogram for malignant neoplasm of breast (principal); M81.0 Age-related osteoporosis without current pathological fracture; M85.851 Other specified disorders of bone density and structure, right thigh; M85.852 Other specified disorders of bone density and structure, left thigh; Z98.890 Other specified postprocedural states; Z85.3 Personal history of malignant neoplasm of breast; Z80.3 Family history of malignant neoplasm of breast | CPT/HCPCS: 77063; 77067; 77080 ==

== ENCOUNTER 2022-04-18 10:22 | Outpatient (CLI) | payer MEDICARE, BC | END 2022-04-18 10:23 | disposition home or self-care (01) | LOC: LABBT 10:22 | PROVIDERS: ATTEND Internal Medicine Gastroenterology | DX: Z20.822 Contact with and (suspected) exposure to COVID-19 (principal) | CPT/HCPCS: 87811 ==

== ENCOUNTER 2023-07-08 13:28 | Emergency (ER) | payer MEDICARE, BC ==
[2023-07-08 14:46] LABS: #Eosinphils 0.2 thou/uL (0.0-0.7); #Monocytes 0.5 thou/uL (0.11-0.59); #Neutrophils 4.4 thou/uL (1.40-6.50); %Basophils 0.3 % (0.0-1.0); %Eosinophils 2.6 % (0.0-10.0); %Lymphocytes 15.1 % (21.0-51.0); %Monocytes 8.9 % (0.0-10.0); %Neutrophils 72.4 % (42.0-75.0); Hemoglobin 12.5 g/dL (12.0-16.0); Mean Corpuscular HGB CONC 32.1 g/dL (32.0-36.0); Mean Corpuscular Volume 96.8 fl (78.0-98.0); Mean Platelet Volume 9.3 fL (7.4-10.4); Platelet Count 210 10x3/uL (130-400); RBC Distribution Width 12.3 % (11.5-14.5); Red Blood Cell (RBC) Count 4.03 mill/uL (4.20-5.40); White Blood Cell (WBC) Count 6.1 10x3/uL (4.8-10.8)
[2023-07-08 15:10] LABS: ALT (SGPT) 8 U/L (8-55); AST (SGOT) 23 U/L (5-34); Albumin 4.5 g/dL (3.4-4.8); Alkaline Phosphatase 86 U/L (40-110); Anion Gap 15 mmol/L (10-20); BUN (Urea Nitrogen) 10 mg/dL (9.8-20.1); Bilirubin, Total 0.5 mg/dL (0.2-1.2); Calc. Creatinine Clearance 0 mL/min (70-130); Calcium 9.8 mg/dL (7.8-10.44); Carbon Dioxide 27 mmol/L (23-31); Chloride 100 mmol/L (98-107); Estimated GFR 66; Glucose 101 mg/dL (83-110); Lipase 7 U/L (8-78); Potassium 3.7 mmol/L (3.5-5.1); Protein, Total 7.5 g/dL (5.8-8.1); Sodium 138 mmol/L (136-145)
[2023-07-08 15:39] LABS: Bilirubin Negative (Negative); Blood, Urine Negative (Negative); Glucose, Urine (Dipstick) Negative (Negative); Ketone, Urine Negative (Negative); Leukocyte Negative (Negative); Nitrite Negative (Negative); Protein, Urine (Dipstick) Negative (Neg-Trace); Urobilinogen 0.2 mg/dL (Less than 2)
[2023-07-08 15:44] LABS: Clarity Clear (Clear)
[2023-07-08 15:48] LABS: Bacteria/HPF None Seen HPF (None Seen); CAUTI Indications for Culture Dysuria,urgency,freq; RBC/HPF None Seen HPF (0-3); Squamous Epithelial 0-3 HPF (0-3); WBC/HPF None Seen HPF (0-3)
[2023-07-08 15:49] LABS: Urine Culture Reflex No No
== END 2023-07-08 19:15 | disposition home or self-care (01) ==
LOC: ERS 13:28
DX: S09.90XA Unspecified injury of head, initial encounter (principal); R32 Unspecified urinary incontinence; I11.0 Hypertensive heart disease with heart failure; I50.9 Heart failure, unspecified; W18.30XA Fall on same level, unspecified, initial encounter
CPT/HCPCS: 36415; 70450; 80053; 81001; 83690; 85025; 93005

== ENCOUNTER 2024-03-08 14:11 | Outpatient (CLI) | payer MEDICARE | END 2024-03-08 14:12 | disposition home or self-care (01) | LOC: BICMAMMO 14:11 | PROVIDERS: ATTEND Family Medicine | DX: Z12.31 Encounter for screening mammogram for malignant neoplasm of breast (principal); M81.0 Age-related osteoporosis without current pathological fracture; M85.851 Other specified disorders of bone density and structure, right thigh; M85.852 Other specified disorders of bone density and structure, left thigh; Z80.3 Family history of malignant neoplasm of breast; Z85.3 Personal history of malignant neoplasm of breast; Z85.528 Personal history of other malignant neoplasm of kidney; Z98.890 Other specified postprocedural states | CPT/HCPCS: 77063; 77067; 77080 ==